=== PATIENT | male | born 1985 | race Caucasian/White ===

== ENCOUNTER 2024-12-22 09:23 | Inpatient (IN) | payer OTHER ==
[2024-12-22 09:37] VITALS: BMI 30.7
[2024-12-22] MEDS ORDERED: NALOXONE (NARCAN) HCL 4 MG/0.1 ML SPRAY NS PRN (10:41)
[2024-12-22] MEDS ORDERED: DICYCLOMINE HCL 10 MG CAPSULE PO PRN (10:41)
[2024-12-22] MEDS ORDERED: BENZONATATE 200 MG CAPSULE PO PRN (10:41)
[2024-12-22] MEDS ORDERED: POLYETHYLENE GLYCOL (HEALTHYLAX) 3350 17 GM PACKET PO PRN (10:41)
[2024-12-22] MEDS ORDERED: BENZOCAINE/MENTHOL (CHLORASEPTIC ) LOZENGE MM PRN (10:41)
[2024-12-22] MEDS ORDERED: NICOTINE POLACRILEX 2 MG GUM BUC PRN (10:41)
[2024-12-22] MEDS ORDERED: IBUPROFEN 600 MG TABLET (FP) PO PRN (10:41)
[2024-12-22] MEDS ORDERED: BISMUTH SUBSALICYLATE 262 MG/15 ML BTL PO PRN (10:41)
[2024-12-22] MEDS ORDERED: IBUPROFEN 400 MG TABLET (FP) PO PRN (10:41)
[2024-12-22] MEDS ORDERED: LOPERAMIDE HCL 2 MG CAPSULE PO PRN (10:41)
[2024-12-22] MEDS ORDERED: MAG HYDROX/AL HYDROX/SIMETH 30 ML UNIT-DOSE CUP PO PRN (10:41)
[2024-12-22] MEDS ORDERED: MAGNESIUM HYDROX 2400MG/30ML ORAL SUSPENSION 30 ML CUP PO PRN (10:41)
[2024-12-22] MEDS ORDERED: ONDANSETRON *ODT* 4 MG TABLET SL PRN (10:41)
[2024-12-22] MEDS ORDERED: guaiFENesin 600 MG TABLET.ER (FP) PO PRN (10:41)
[2024-12-22] MEDS: ACETAMINOPHEN 325 MG TABLET (FP) PO PRN (16:22)
[2024-12-22] MEDS: hydrOXYzine PAMOATE 25 MG CAPSULE (FP) PO PRN (22:25)
[2024-12-22] MEDS: THIAMINE 100 MG TABLET PO SCH (22:25)
[2024-12-22] MEDS: METHOCARBAMOL 500 MG TABLET PO PRN (22:25)
[2024-12-22] MEDS: MELATONIN 5 MG TABLETS PO SCH (22:25)
[2024-12-23 06:51] VITALS: TEMP 97.7
[2024-12-23] MEDS: metFORMIN HCL 500 MG TABLET (FP) PO SCH (06:57)
[2024-12-23 09:21] VITALS: BP 117/86; PULSE 81; RESP 16
[2024-12-23] MEDS: NICOTINE 21 MG/24 HOURS TOPICAL PATCH TD SCH (10:28)
[2024-12-23] MEDS: PRENATAL VITAMINS W/ FOLIC ACID TABLET (FP) PO SCH (10:28)
[2024-12-23 11:33] LABS: HEMATOCRIT 42.6 % (40.1-51.0); HEMOGLOBIN 13.3 g/dL (13.7-17.5); MCHC 31.2 g/dl (32.3-36.5); MEAN CELL VOLUME 88.4 fl (79.0-92.2); MEAN PLT VOLUME 11.9 fl (9.4-12.4); PLATELET COUNT 309 x10^3/uL (163-337)
[2024-12-23 11:41] LABS: POTASSIUM 4.7 mmol/L (3.5-5.1)
[2024-12-23] MEDS: TOPIRAMATE 25 MG TABLET PO SCH (11:46)
[2024-12-23 11:59] LABS: ALBUMIN 3.9 g/dl (3.4-5.0); BLOOD UREA NITROGEN 10.4 mg/dL (7-18); CALCIUM 9.3 mg/dL (8.5-10.1)
[2024-12-23 12:02] LABS: CREATININE 0.9 mg/dL (0.55-1.3)
[2024-12-23 12:04] LABS: BILIRUBIN,TOTAL 0.4 mg/dL (0.2-1); TOT PROT 6.6 g/dl (6.4-8.2)
== END 2024-12-23 11:34 | disposition home or self-care (01) | DRG 774 ==
LOC: YASAS 09:23 → Y6N 11:32
PROVIDERS: ADMIT Allergy & Immunology; ATTEND Allergy & Immunology
PROC: HZ2ZZZZ Detoxification Services for Substance Abuse Treatment (ICD-10-PCS; principal; 2024-12-22)
DX: F14.20 Cocaine dependence, uncomplicated (principal); F10.20 Alcohol dependence, uncomplicated; F17.210 Nicotine dependence, cigarettes, uncomplicated; E11.9 Type 2 diabetes mellitus without complications; Z79.84 Long term (current) use of oral hypoglycemic drugs
CPT/HCPCS: 36415; 80053; 80305; 80307; 82962; 85027; 86780